=== PATIENT | female | born 1975 | race Two or more races ===

== ENCOUNTER → 2024-04-18 | Outpatient (CLI) | payer BC | LOC: M WUC 09:49 | PROVIDERS: ATTEND Nurse Practitioner Adult Health | DX: J15.7 Pneumonia due to Mycoplasma pneumoniae (principal); J01.10 Acute frontal sinusitis, unspecified ==

== ENCOUNTER → 2024-07-17 | Outpatient (CLI) | payer BC | LOC: M WHC 10:05 | PROVIDERS: ATTEND Physician Assistant | DX: Z12.31 Encounter for screening mammogram for malignant neoplasm of breast (principal); R92.333 Mammographic heterogeneous density, bilateral breasts ==

== ENCOUNTER → 2024-10-23 | Outpatient (CLI) | payer BC | LOC: M RAD 10:36 | PROVIDERS: ATTEND Physician Assistant | DX: J32.8 Other chronic sinusitis (principal) ==